=== PATIENT | female | born 1990 | race African-American/Black ===

== ENCOUNTER 2016-11-15 07:25 | Emergency (ER) | payer BC, MEDICAID ==
[2016-11-15 07:31] VITALS: BP 136/80
--- NOTE | 2016-11-15 08:18 | ER Document Report ---
ED General - General Chief Complaint: Constipation Stated Complaint: CONSTIPATION Time Seen by Provider: 11/15/16 08:00 TRAVEL OUTSIDE OF THE [place] IN LAST 30 DAYS: No - HPI Notes: Patient with a chronic history of constipation (x6yrs) c/o having issues with BM 's over the last 2 weeks. Pt states that she has been more constipated lately with her last BM yesterday being of min. amount, hard, and small. Pt states that she is being seen by GI and has been on trulance with no noticeable changes. Her next f/u with them is in 1.5-2mos. She has not had any enemas for her symptoms. She also reports having lower abdominal cramping without n/v/ d. History of tubal ligation 2 years ago. Pt states that she is still eating/ drinking with no problems. Denies any fever, URI, sore throat, headaches, cp, syncope, palp, sob, dyspnea, cough, wheeze, n/v/d, dysuria, hematuria, flank pain, or rash. - Related Data Allergies/Adverse Reactions: No Known Allergies Allergy (Verified 07/02/14 13:45) Past Medical History - Social History Smoking Status: Unknown if Ever Smoked Chew tobacco use (# tins/day): No Frequency of alcohol use: None Drug Abuse: None Family History: Reviewed & Not Pertinent, Hypertension Patient has suicidal ideation: No Patient has homicidal ideation: No - Past Medical History Cardiac Medical History: Denies: Hx Coronary Artery Disease, Hx Heart Attack, Hx Hypertension Pulmonary Medical History: Denies: Hx Asthma, Hx Bronchitis, Hx COPD, Hx Pneumonia Neurological Medical History: Denies: Hx Cerebrovascular Accident, Hx Seizures Renal/ Medical History: Denies: Hx Peritoneal Dialysis Musculoskeltal Medical History: Denies Hx Arthritis Past Surgical History: Reports: Hx Tubal Ligation - Immunizations Hx Diphtheria, Pertussis, Tetanus Vaccination: No Review of Systems - Review of Systems Notes: REVIEW OF SYSTEMS: CONSTITUTIONAL : Denies fever, chills, or sweats. Denies recent illness. EENT: Denies eye, ear, throat, or mouth pain or symptoms. Denies nasal or sinus congestion or discharge. Denies throat, tongue, or mouth swelling or difficulty swallowing. CARDIOVASCULAR: Denies chest pain. Denies palpitations or racing or irregular heart beat. Denies ankle edema. RESPIRATORY: Denies cough, cold, or chest congestion. Denies shortness of breath, difficulty breathing, or wheezing. GASTROINTESTINAL: see hpi GENITOURINARY: Denies difficulty urinating, painful urination, burning, frequency, blood in urine, or discharge. FEMALE GENITOURINARY: Denies vaginal bleeding, heavy or abnormal periods, irregular periods. Denies vaginal discharge or odor. MUSCULOSKELETAL: Denies back or neck pain or stiffness. Denies joint pain or swelling. SKIN: Denies rash, lesions or sores. NEUROLOGICAL: Denies confusion or altered mental status. Denies passing out or loss of consciousness. Denies dizziness or lightheadedness. Denies headache. Denies weakness or paralysis or loss of use of either side. Denies problems with gait or speech. Denies sensory loss, numbness, or tingling. ALL OTHER SYSTEMS REVIEWED AND NEGATIVE. Dictation was performed using [employer] voice recognition software Physical Exam - Vital signs Vitals: Temp Pulse Resp BP Pulse Ox 98.2 F 82 16 136/80 H 98 11/15/16 07:28 11/15/16 07:28 11/15/16 07:28 11/15/16 07:28 11/15/16 07:28 Notes: PHYSICAL EXAMINATION: GENERAL: Well-appearing, well-nourished and in no acute distress. ENT: No tonsillar hypertrophy or erythema. No sinus tenderness. NECK: Normal range of motion, supple without lymphadenopathy LUNGS: Breath sounds clear to auscultation bilaterally and equal. No wheezes rales or rhonchi. HEART: Regular rate and rhythm without murmurs ABDOMEN: Soft, nontender, nondistended abdomen. No guarding, no rebound. No masses appreciated. Normal bowel sounds present. CVA tenderness negative bilaterally. obese. Extremities: No cyanosis/clubbing/edema b/l. Peripheral pulses 2+. Capillary refill less than 3 seconds. PSYCH: Normal mood, normal affect. SKIN: Warm, Dry, normal turgor, no rashes or lesions noted. Course - Re-evaluation Re-evalutation: 11/15/16 09:17 Patient is afebrile, well-hydrated, 26-year-old female who presents to the ED with constipation. KUB XR noted stool in her ascending/transverse and rectum. Vitals are stable, PE otherwise unremarkable. Offered enema in-house, patient would prefer to perform the function at home. Senna and subside with mineral oil enema given to the patient to take while at home. Risks/benefits thoroughly reviewed. She is to continue to take her treatments as directed by GI. I would like her to follow-up with GI within the next week, and her PCM within the next 2-3 days for recheck. Return to the ED with any worsening symptoms or concerning symptoms otherwise. pt in agreement. Low suspicion for any bowel perforation, AAA, bowel obstruction, diverticulitis, incarcerated hernia, appendicitis, torsion, or ectopic. - Vital Signs Vital signs: Temp Pulse Resp BP Pulse Ox 98.2 F 82 16 136/80 H 98 11/15/16 07:28 11/15/16 07:28 11/15/16 07:28 11/15/16 07:28 11/15/16 07:28 Discharge - Discharge Clinical Impression: Constipation Qualifiers: Constipation type: other constipation type Qualified Code(s): K59.09 - Other constipation Condition: Stable Disposition: HOME, SELF-CARE Instructions: Constipation ([facility]), Laxative ([facility]) Additional Instructions: Use enema as directed at home Take Senna (Laxative) as directed as well Increase water intake Increase fiber intake Take Trulance as directed by GI Recheck with GI in the next week Recheck with PCM in 2-3 days Return to the ED with any worsening/concerning symptoms (i.e. fever, cp, palp, sob, cough, wheeze, abdominal pain, n/v, hematochezia, melena, dysuria, hematuria, etc). Forms: Elevated Blood Pressure
--- NOTE | 2016-11-15 08:48 | RADIOLOGY REPORT (SQ) ---
EXAM DESCRIPTION: KUB/ABDOMEN (SINGLE VIEW) COMPLETED DATE/TIME: 11/15/2016 8:37 am REASON FOR STUDY: constipation COMPARISON: 2009 NUMBER OF VIEWS: One view. TECHNIQUE: Supine radiographic image of the abdomen acquired. LIMITATIONS: None. FINDINGS: BOWEL GAS PATTERN: Large amount of stool in the ascending colon, transverse colon, and rec mehdi. No dilated small bowel loops. Stomach decompressed. CALCIFICATIONS: No suspicious calcifications. SOFT TISSUES: No gross mass or suggestion of organomegaly. HARDWARE: Clips post tubal ligation. BONES: No acute fracture. No worrisome bone lesions. OTHER: No other significant finding. IMPRESSION: Constipation TECHNICAL DOCUMENTATION: JOB ID: [id number] [employer]- All Rights Reserved
[2016-11-15] MEDS ORDERED: MINERAL OIL ENEMA 133 ML PR ONE (09:06)
[2016-11-15] MEDS ORDERED: SENNOSIDES/DOCUSATE 8.6-50 MG 1 EACH TABLET PO ONE (09:07)
== END 2016-11-15 09:30 | disposition home or self-care (01) ==
LOC: ER 07:25
DX: K59.09 Other constipation (principal); K59.00 Constipation, unspecified; R10.30 Lower abdominal pain, unspecified
CPT/HCPCS: 99283; 74000; J3490

== ENCOUNTER 2017-03-16 22:19 | Emergency (ER) | payer BC, MEDICAID ==
[2017-03-16 22:42] VITALS: BP 145/86
[2017-03-16] MEDS ORDERED: LIDOCAINE 2% VISCOUS SOLN 20 ML UDCUP PO ONE (23:55)
--- NOTE | 2017-03-16 23:55 | ER Document Report ---
HPI - HPI Pain Level: 3 Notes: Patient is a 27-year-old female who presents the ED complaining of right upper dental pain to #141 day. Patient states that she has noticed some swelling to the area but no other obvious abscess or discharge. She still eating and drinking without difficulties. Patient does not have a dentist. She denies any significant medical history or drug allergies. Denies any smoking or drug use. No other concerns or complaints at this time. Denies any headache, fever , head injury, neck pain, hoarseness, drooling, URI, sore throat, chest pain, palpitations, syncope, cough, shortness of breath, wheeze, dyspnea, abdominal pain, nausea/vomiting/diarrhea, urinary retention, dysuria, hematuria, or rash. - ROS Notes: REVIEW OF SYSTEMS: CONSTITUTIONAL : Denies fever, chills, or sweats. Denies recent illness. EENT: see hpi CARDIOVASCULAR: Denies chest pain. Denies palpitations or racing or irregular heart beat. Denies ankle edema. RESPIRATORY: Denies cough, cold, or chest congestion. Denies shortness of breath, difficulty breathing, or wheezing. GASTROINTESTINAL: Denies abdominal pain or distention. Denies nausea, vomiting , or diarrhea. Denies blood in vomitus, stools, or per rectum. Denies black, tarry stools. Denies constipation. GENITOURINARY: Denies difficulty urinating, painful urination, burning, frequency, blood in urine, or discharge. MUSCULOSKELETAL: Denies back or neck pain or stiffness. Denies joint pain or swelling. SKIN: Denies rash, lesions or sores. NEUROLOGICAL: Denies confusion or altered mental status. Denies passing out or loss of consciousness. Denies dizziness or lightheadedness. Denies headache. Denies weakness or paralysis or loss of use of either side. Denies problems with gait or speech. Denies sensory loss, numbness, or tingling. ALL OTHER SYSTEMS REVIEWED AND NEGATIVE. Dictation was performed using [employer] voice recognition software - CARDIOVASCULAR Cardiovascular: DENIES: Chest pain - REPRODUCTIVE Reproductive: DENIES: : - DERM Skin Color: Normal, [place] Past Medical History - Social History Smoking Status: Never Smoker Family History: Reviewed & Not Pertinent, Hypertension Patient has suicidal ideation: No Patient has homicidal ideation: No - Past Medical History Cardiac Medical History: Denies: Hx Coronary Artery Disease, Hx Heart Attack, Hx Hypertension Pulmonary Medical History: Denies: Hx Asthma, Hx Bronchitis, Hx COPD, Hx Pneumonia Neurological Medical History: Denies: Hx Cerebrovascular Accident, Hx Seizures Renal/ Medical History: Denies: Hx Peritoneal Dialysis Musculoskeltal Medical History: Denies Hx Arthritis Past Surgical History: Reports: Hx Tubal Ligation - Immunizations Hx Diphtheria, Pertussis, Tetanus Vaccination: No Vertical Provider Document - CONSTITUTIONAL Agree With Documented VS: Yes Notes: PHYSICAL EXAMINATION: GENERAL: Well-appearing, well-nourished and in no acute distress. HEAD: Atraumatic, normocephalic. EYES: Pupils equal round and reactive to light, extraocular movements intact, sclera anicteric, conjunctiva are normal. ENT: EAC clear b/l. TM's intact b/l without erythema, fluid, or perforation. Nares patent and without discharge. oropharynx clear without exudates. No tonsilar hypertrophy or erythema. Moist mucous membranes. No sinus tenderness. Uvula midline. No palatine shift. No tongue protrusion. No respiratory compromise. Mouth: Poor dentition. + mild decay and mild gingivitis. No obvious abscess or discharge noted. No facial swelling. + tenderness to tooth #14. NECK: Normal range of motion, supple without lymphadenopathy. No rigidity/ meningismus. LUNGS: Breath sounds clear to auscultation bilaterally and equal. No wheezes rales or rhonchi. HEART: Regular rate and rhythm without murmurs, rubs, gallops. NEUROLOGICAL: Cranial nerves grossly intact. Normal speech, normal gait. Normal sensory, motor exams PSYCH: Normal mood, normal affect. SKIN: Warm, Dry, normal turgor, no rashes or lesions noted. - INFECTION CONTROL TRAVEL OUTSIDE OF THE [place] IN LAST 30 DAYS: No - RESPIRATORY O2 Sat by Pulse Oximetry: 100 Course - Re-evaluation Re-evalutation: 03/16/17 23:53 Patient is an afebrile, well-hydrated, 27-year-old female who presents the ED with a toothache, nerve root etiology versus infection. Vitals are stable. PE is otherwise unremarkable. Low suspicion for any meningitis, sepsis, peritonsillar/pharyngeal abscess, respiratory compromise, Jamie's, temporal arteritis, or other emergent systemic condition at this time. Patient is aware this condition can change from initial presentation and she needs to monitor symptoms closely. I will send her home with a prescription for viscous lidocaine as well as penicillin to take as directed. Conservative measures otherwise for symptoms. Call to schedule an appointment with a dentist for further evaluation and management. Recheck with your PCM this week as well. Return to the ED with any worsening/concerning symptoms otherwise as reviewed in discharge. Patient is in agreement. - Vital Signs Vital signs: Temp Pulse Resp BP Pulse Ox 98.6 F 82 18 145/86 H 100 03/16/17 22:39 03/16/17 22:39 03/16/17 22:39 03/16/17 22:39 03/16/17 22:39 Discharge - Discharge Clinical Impression: Toothache Condition: Stable Disposition: HOME, SELF-CARE Instructions: [facility], Toothache ([facility]), Penicillin V K ([facility]), Dentist Additional Instructions: [place] and floss twice daily Maintain fluid intake Take antibiotics as directed Mouthwash, salt water gargles, peroxide rinse as needed Tylenol/ibuprofen as needed Recheck with PCM this week Call today/tomorrow and schedule an appointment with your dentist for further evaluation Return to the ED with any worsening symptoms and/or development of fever, headache, facial swelling, swelling of lips/tongue/throat, trouble swallowing, drooling, hoarseness, neck pain/stiffness, chest pain, palpitations, syncope, shortness of breath, trouble breathing, abdominal pain, n/v/d, numbness/tingling , or other worsening symptoms that are concerning to you. Prescriptions: Penicillin V Potassium [Penicillin Vk 500 mg Tablet] 500 mg PO BID #20 tablet Forms: Elevated Blood Pressure Referrals: [facility] [Provider Group] - Follow up in 1 week
== END 2017-03-17 00:12 | disposition home or self-care (01) ==
LOC: ER 22:19
DX: K08.89 Other specified disorders of teeth and supporting structures (principal); K02.9 Dental caries, unspecified; K05.10 Chronic gingivitis, plaque induced
CPT/HCPCS: 99282; J3490

== ENCOUNTER 2017-11-05 14:16 | Emergency (ER) | payer OTHER, MEDICAID ==
[2017-11-05] MEDS ORDERED: IBUPROFEN 600 MG TABLET PO ONE (14:49)
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
[2017-11-05 16:04] VITALS: BP 129/85
== END 2017-11-05 16:04 | disposition home or self-care (01) ==
LOC: ER 14:16
DX: S46.912A Strain of unspecified muscle, fascia and tendon at shoulder and upper arm level, left arm, initial encounter (principal); V43.52XA Car driver injured in collision with other type car in traffic accident, initial encounter; R03.0 Elevated blood-pressure reading, without diagnosis of hypertension
CPT/HCPCS: 99283

== ENCOUNTER 2019-04-21 15:02 | Emergency (ER) | payer MEDICAID, OTHER ==
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
[2019-04-21] MEDS ORDERED: LIDOCAINE 1%/EPINEPHRINE INJ 20 ML VIAL ONE (15:24)
[2019-04-21] MEDS ORDERED: DIPH/PERTUSS(ACELL)/TETANUS VAC/PF 0.5 ML SYR (>=10YO) IM ONE (16:00)
[2019-04-21 17:12] VITALS: BP 154/105
[2019-04-21] MEDS ORDERED: LIDOCAINE 1.5%/EPINEPHRINE INJ-PF 30 ML SDV INJ ONE (17:14)
== END 2019-04-21 17:12 | disposition home or self-care (01) ==
LOC: ER 15:02
PROC: 0HQCXZZ Repair Left Upper Arm Skin, External Approach (ICD-10-PCS; principal; 2019-04-21)
PROC: 0HQ0XZZ Repair Scalp Skin, External Approach (ICD-10-PCS; 2019-04-21)
DX: S01.01XA Laceration without foreign body of scalp, initial encounter (principal); S41.112A Laceration without foreign body of left upper arm, initial encounter; S60.512A Abrasion of left hand, initial encounter; W45.8XXA Other foreign body or object entering through skin, initial encounter
CPT/HCPCS: 99284; 90471; 90715; 12002; J3490

== ENCOUNTER 2019-05-02 10:33 | Emergency (ER) | payer SELFPAY ==
[2019-05-02 10:45] VITALS: BP 143/93
--- NOTE | 2019-05-02 11:19 | ER Document Report ---
HPI - HPI Patient complains to provider of: Suture removal Time Seen by Provider: 05/02/19 11:15 Onset: Other - 11 days Onset/Duration: Better Pain Level: 0 Context: Patient is here for suture removal to scalp laceration and left arm laceration that was sutured 11 days ago. Patient denies any problems with the injuries. Patient's tetanus immunization was updated at her prior visit. Associated Symptoms: None Exacerbated by: Denies Relieved by: Denies Similar symptoms previously: No Recently seen / treated by doctor: Yes - ROS ROS below otherwise negative: Yes Systems Reviewed and Negative: Yes All other systems reviewed and negative - CONSTITUTIONAL Constitutional: DENIES: Fever - REPRODUCTIVE Reproductive: DENIES: : - DERM Skin Color: Normal Skin Problems: Laceration Past Medical History - General Information source: Patient - Social History Smoking Status: Never Smoker Chew tobacco use (# tins/day): No Frequency of alcohol use: None Drug Abuse: None Occupation: [employer] Lives with: Family Family History: Reviewed & Not Pertinent, Hypertension Patient has suicidal ideation: No Patient has homicidal ideation: No - Medical History Medical History: Negative Renal/ Medical History: Denies: Hx Peritoneal Dialysis Musculoskeletal Medical History: Denies Hx Arthritis Past Surgical History: Reports: Hx Tubal Ligation - Immunizations Hx Diphtheria, Pertussis, Tetanus Vaccination: No Vertical Provider Document - CONSTITUTIONAL Agree With Documented VS: Yes Exam Limitations: No Limitations General Appearance: WD/WN, No Apparent Distress - INFECTION CONTROL TRAVEL OUTSIDE OF THE [place] IN LAST 30 DAYS: No - HEENT HEENT: Normocephalic Notes: Patient with 2 intact sutures to left parietal scalp - RESPIRATORY Respiratory: Breath Sounds Normal, No Respiratory Distress - CARDIOVASCULAR Cardiovascular: Regular Rate, Regular Rhythm - BACK Back: Normal Inspection - MUSCULOSKELETAL/EXTREMETIES Musculoskeletal/Extremeties: SITA DOE - NEURO Level of Consciousness: Awake, Alert, Appropriate Motor/Sensory: No Motor Deficit - DERM Integumentary: Warm, Dry, Laceration - Sutured laceration to left side of scalp with 2 intact sutures, sutured laceration to left upper arm with 7 intact sutures, wound edges approximated, no surrounding erythema Course - Vital Signs Vital signs: Temp Pulse Resp BP Pulse Ox 99.8 F 81 17 143/93 H 99 05/02/19 11:12 05/02/19 10:43 05/02/19 11:12 05/02/19 10:43 05/02/19 11:12 Discharge - Discharge Clinical Impression: Encounter for removal of sutures Condition: Stable Disposition: HOME, SELF-CARE Instructions: Suture Removal Additional Instructions: Return immediately for any new or worsening symptoms Followup with your primary care provider, call tomorrow to make a followup appointment Forms: Return to Work Referrals: JOSHUA BARTON MD [EMERITUS] - Follow up as needed
== END 2019-05-02 11:35 | disposition home or self-care (01) ==
LOC: ER 10:33
DX: S41.112D Laceration without foreign body of left upper arm, subsequent encounter (principal); X58.XXXD Exposure to other specified factors, subsequent encounter; Z98.51 Tubal ligation status

== ENCOUNTER 2020-01-05 13:33 | Emergency (ER) | payer SELFPAY ==
[2020-01-05] MEDS ORDERED: ONDANSETRON 4 MG TAB.RAPDIS PO ONE (13:49)
--- NOTE | 2020-01-05 13:51 | ER Document Report ---
ED Medical Screen (RME) - General Stated Complaint: DIZZY/NAUSEA/VOMITING Time Seen by Provider: 01/05/20 13:46 Mode of Arrival: Ambulatory Information source: Patient Notes: Otherwise healthy 30-year-old female presents emergency department chief complaint of dizziness, nausea and vomiting that began yesterday. She denies any fever or chills. Denies any known exposure 20 COVID-19 positive persons. Lung sounds clear and equal bilaterally. Vital signs reviewed and are normal. I have greeted and performed a rapid initial assessment of this patient. A comprehensive ED assessment and evaluation of the patient, analysis of test results and completion of the medical decision making process will be conducted by additional ED providers. I have specifically instructed the patient or family members with the patient to immediately return to any nursing staff should anything change in the patient's condition or with their chief complaint. TRAVEL OUTSIDE OF THE [place] IN LAST 30 DAYS: No - Related Data Allergies/Adverse Reactions: No Known Allergies Allergy (Verified 05/02/19 11:13) Past Medical History - Past Medical History Cardiac Medical History: Denies: Hx Coronary Artery Disease, Hx Heart Attack, Hx Hypertension Pulmonary Medical History: Denies: Hx Asthma, Hx Bronchitis, Hx COPD, Hx Pneumonia Neurological Medical History: Denies: Hx Cerebrovascular Accident, Hx Seizures Renal/ Medical History: Denies: Hx Peritoneal Dialysis Musculoskeltal Medical History: Denies Hx Arthritis Past Surgical History: Reports: Hx Tubal Ligation - Immunizations Hx Diphtheria, Pertussis, Tetanus Vaccination: No Physical Exam - Vital signs Vitals: Temp Pulse Resp BP Pulse Ox 98.7 F 82 16 146/84 H 100 01/05/20 13:42 01/05/20 13:42 01/05/20 13:42 01/05/20 13:42 01/05/20 13:42 Course - Vital Signs Vital signs: Temp Pulse Resp BP Pulse Ox 98.7 F 82 16 146/84 H 100 01/05/20 13:42 01/05/20 13:42 01/05/20 13:42 01/05/20 13:42 01/05/20 13:42
--- NOTE | 2020-01-05 16:12 | ER Document Report ---
HPI - HPI Time Seen by Provider: 01/05/20 13:46 Notes: Otherwise healthy 30-year-old female presents emergency department chief complaint of dizziness, nausea and vomiting that began yesterday. She denies any shortness of breath, chest pain, fever or chills. Denies any known exposure to COVID-19 positive persons. - ROS Systems Reviewed and Negative: Yes All other systems reviewed and negative - NEURO Neurology: REPORTS: Dizzinesss / Vertigo - GASTROINTESTINAL Gastrointestinal: REPORTS: Nausea, Patient vomiting - REPRODUCTIVE Reproductive: DENIES: : Past Medical History - General Information source: Patient - Social History Smoking Status: Never Smoker Frequency of alcohol use: None Drug Abuse: None Family History: Hypertension - Medical History Medical History: Negative Past Surgical History: Reports: Hx Tubal Ligation - Immunizations Hx Diphtheria, Pertussis, Tetanus Vaccination: No Vertical Provider Document - CONSTITUTIONAL Notes: PHYSICAL EXAMINATION: GENERAL: Well-appearing, well-nourished and in no acute distress. HEAD: Atraumatic, normocephalic. EYES: Pupils equal round and reactive to light, extraocular movements intact, conjunctiva are normal. ENT: Nares patent, oropharynx clear without exudates. Moist mucous membranes. NECK: Normal range of motion, supple without lymphadenopathy LUNGS: Breath sounds clear to auscultation bilaterally and equal. No wheezes rales or rhonchi. HEART: Regular rate and rhythm without murmurs ABDOMEN: Soft, nontender, nondistended abdomen. No guarding, no rebound. No masses appreciated. Female : deferred Musculoskeletal: Normal range of motion, no pitting or edema. No cyanosis. NEUROLOGICAL: Cranial nerves grossly intact. Normal speech, normal gait. Normal sensory, motor exams PSYCH: Normal mood, normal affect. SKIN: Warm, Dry, normal turgor, no rashes or lesions noted. - INFECTION CONTROL TRAVEL OUTSIDE OF THE [place] IN LAST 30 DAYS: No Course - Vital Signs Vital signs: Temp Pulse Resp BP Pulse Ox 98.7 F 82 16 146/84 H 100 01/05/20 13:42 01/05/20 13:42 01/05/20 13:42 01/05/20 13:42 01/05/20 13:42 - Laboratory Result Diagrams: 01/05/20 16:35 01/05/20 16:35 Discharge - Discharge Clinical Impression: Nausea & vomiting Qualifiers: Vomiting type: unspecified Vomiting Intractability: unspecified Qualified Code(s): R11.2 - Nausea with vomiting, unspecified Condition: Stable Disposition: HOME, SELF-CARE Instructions: Antinausea Medication ([facility]), Vomiting ([facility]) Additional Instructions: Please take medications as prescribed. You were tested today for COVID-19. You must self quarantine until you receive your test results or until you are symptom-free for at least 3 days. Drink plenty of fluids. Tylenol or ibuprofen for any fever or body aches. Return to the emergency department with new or worsening symptoms such as persistent vomiting despite taking nausea medicine, shortness of breath, blood in your stool or vomit or any other concerning symptoms. Prescriptions: Promethazine HCl [Phenergan 25 mg Tablet] 1 - 2 tab PO Q6H PRN #15 tablet PRN Reason: Forms: Return to Work
[2020-01-05 16:49] LABS: APPEARANCE,URINE SLIGHTLY-CLOUDY; BILIRUBIN,URINE NEGATIVE (NEGATIVE); COLOR,URINE YELLOW; GLUCOSE, URINE NEGATIVE (NEGATIVE); KETONES,URINE NEGATIVE (NEGATIVE); LEUKOCYTE ESTERASE,URINE TRACE (NEGATIVE); NITRITE,URINE NEGATIVE (NEGATIVE); PROTEIN,URINE 30 mg/dL (NEGATIVE); URINE SPECIFIC GRAVITY 1.029
[2020-01-05 17:13] LABS: ABSOLUTE LYMPHOCYTES (AUTO) 1.5 10^3/uL (0.5-4.7); ABSOLUTE MONOCYTES (AUTO) 0.4 10^3/uL (0.1-1.4); ABSOLUTE NEUT (AUTO) 4.1 10^3/uL (1.7-8.2); BASOPHILS % (AUTO) 0.4 % (0-2); EOSINOPHILS % (AUTO) 0.3 % (0-6); HEMATOCRIT 38.6 % (36.0-47.0); HEMOGLOBIN 12.8 g/dL (12.0-15.5); LYMPHOCYTES % (AUTO) 24.8 % (13-45); MEAN CORPUSCULAR HEMOGLOBIN 28.1 pg (27.0-33.4); MEAN CORPUSCULAR HGB CONC 33.3 g/dL (32.0-36.0); MEAN CORPUSCULAR VOLUME 85 fl (80-97); MONOCYTES % (AUTO) 6.6 % (3-13); PLATELET COUNT 262 10^3/uL (150-450); RED BLOOD COUNT 4.57 10^6/uL (3.72-5.28); RED CELL DISTRIBUTION WIDTH 14.6 % (11.5-14.0); SEGMENTED NEUTROPHILS % (AUTO) 67.9 % (42-78); TOTAL CELLS COUNTED % (AUTO) 100 %; WHITE BLOOD COUNT 6.1 10^3/uL (4.0-10.5)
[2020-01-05 17:30] LABS: ALBUMIN 4.5 g/dL (3.5-5.0); ALKALINE PHOSPHATASE 88 U/L (38-126); ANION GAP 8 (5-19); ASPARTATE AMINO TRANSFERASE 32 U/L (14-36); BILIRUBIN,TOTAL 0.6 mg/dL (0.2-1.3); BLOOD UREA NITROGEN 12 mg/dL (7-20); CALCIUM 9.3 mg/dL (8.4-10.2); CARBON DIOXIDE 29 mmol/L (22-30); CHLORIDE 102 mmol/L (98-107); GLUCOSE 106 mg/dL (75-110); TOTAL PROTEIN 8.5 g/dL (6.3-8.2)
[2020-01-05 18:13] VITALS: BP 156/95
== END 2020-01-05 18:20 | disposition home or self-care (01) ==
LOC: ER 13:33
DX: R11.2 Nausea with vomiting, unspecified (principal); R42 Dizziness and giddiness; Z98.51 Tubal ligation status; Z20.828 Contact with and (suspected) exposure to other viral communicable diseases
CPT/HCPCS: 99283; 36415; 83690; 85025; 87635; 81025; 80053; 81001; S0119; C9803